=== PATIENT | male | born 1975 | race Caucasian/White ===

== ENCOUNTER 2022-09-13 23:35 | Emergency (ER) | payer OTHER, SELFPAY | END 2022-09-14 02:28 | disposition left against medical advice (07) | PROVIDERS: Emergency Provider Emergency Medicine; PCP Nurse Practitioner Primary Care | DX: S69.92XA Unspecified injury of left wrist, hand and finger(s), initial encounter (principal); X58.XXXA Exposure to other specified factors, initial encounter; Y93.9 Activity, unspecified; Y92.9 Unspecified place or not applicable; Y99.9 Unspecified external cause status ==

== ENCOUNTER → 2024-11-10 09:54 | Outpatient (BNV) | payer OTHER, SELFPAY | PROVIDERS: PCP Nurse Practitioner Primary Care; Visit Provider Radiology Diagnostic Radiology | DX: S51.812A Laceration without foreign body of left forearm, initial encounter (principal) | CPT/HCPCS: 73090 ==

== ENCOUNTER 2024-11-10 10:31 | Emergency (ER) | payer BC, SELFPAY ==
--- NOTE | ~2024-11-10 | XR_ITS ---
EXAMINATION: XR FOREARM, LEFT CLINICAL INFORMATION: LARGE LAC WITH HEAVY ITEM COMPARISON: None available. TECHNIQUE: AP and lateral views of the left forearm were obtained. FINDINGS: No fracture, dislocation, or suspicious bone lesion. Imaged joints appear unremarkable. No elbow joint effusion. Soft tissues demonstrate no radiopaque foreign body or ectopic gas. There is volar forearm laceration proximally. XR/XR forearm LT 2V IMPRESSION: Volar forearm laceration without underlying bony abnormality. No radiopaque foreign body seen. Electronically signed by: Gio Santo MD 11/10/2024 10:59 AM EDT
[2024-11-10 10:35] VITALS: BP 159/77; PULSE 87; RESP 16; TEMP 36.6; O2SAT 95; BMI 27.0
--- NOTE | 2024-11-10 14:11 | ED.WOUNDLAC ---
HPI - Wound/Laceration General Chief Complaint: Wound/Laceration Stated Complaint: hand laceration Time Seen by Provider: 11/10/24 14:06 Source: patient, RN notes reviewed and old records reviewed Mode of arrival: ambulatory Limitations: no limitations History of Present Illness ED Provider: Allie HPI narrative: Patient is a 49-year-old right hand dominant male presenting with laceration to left forearm sustained prior to arrival. Was attempting to throw a used toilet out in a dumpster, but it fell back out and cut his arm on the way to the ground. Unsure last tdap. Denies any numbness/tingling. Denies any decreased ROM to wrist or hand. Applied dressing prior to arrival. Denies any SI or attempt at self harm. Related Data Previous Rx's ?Medication ?Instructions ?Recorded levofloxacin 500 mg tablet 500 mg PO DAILY #7 tabs 11/10/24 Allergies Allergy/AdvReac Type Severity Reaction Status Date / Time erythromycin base Allergy Severe Swelling Verified 11/10/24 10:37 Penicillins Allergy Severe Swelling Verified 11/10/24 10:37 Review of Systems Review of Systems: As per hPI Yes all other systems are reviewed and are negative Constitutional: Constitutional: Reports as per HPI [facility] Social History Social History Advance Directives: No Advance Directives Information Provided: Yes Physical Exam Vital Signs: Vital Signs: Last Vital Signs Temp 98 F 11/10/24 10:35 Pulse 87 11/10/24 10:35 Resp 16 11/10/24 10:35 BP 159/77 H 11/10/24 10:35 Pulse Ox 95 11/10/24 10:35 O2 Del Method Room Air 11/10/24 10:35 BMI result Body Mass Index 27.0 Vital signs have been reviewed and appear to be correct. Blood pressure normal. Heart rate normal. Respiratory rate normal. Temperature normal. Oxygen saturation normal. Const: General: cooperative, healthy appearing and no acute distress Orientation/consciousness: oriented to person, oriented to place, oriented to time and patient oriented x3 Limitations: no limitations HEENT: Head: Yes normocephalic and Yes atraumatic Ears: external ears normal General nose exam: Normal external nose present Face and sinus: Yes face symmetric Mouth: oropharynx normal and moist mucous membranes Throat: Yes uvula midline Eyes: Pupils: Equal, round and reactive pupils present Neck: Neck: Yes normal visual inspection and Yes supple Resp: Effort & Inspection: normal respiratory effort and able to speak in complete sentences Auscultation: clear to auscultation bilaterally Cardio: Rate: regular rate Rhythm: regular rhythm Heart sounds: S1 normal heart sound present and S2 normal heart sound present GI: Palpation (GI): Soft to palpation and nontender Auscultation: normoactive bowel sounds : General: Yes no CVA tenderness Back/Spine/Pelvis: Back: no CVA tenderness Skin: General skin exam: elasticity normal and turgor normal Neuro: General: oriented to person, oriented to place, oriented to time, patient oriented x3, moves all extremities, no focal motor deficits and CN's II-XI intact bilaterally Cranial nerves: Yes Equal, round and reactive pupils present Cognition (Neuro): normal cognition Extrem: General: Yes full ROM, Yes no pedal edema and Yes no calf tenderness Left upper extremity: elbow/forearm Details: distal pulses intact and other (8cm linear laceration anterior forearm), wrist (full ROM) and hand Details: vascular exam Details: radial pulse present and normal capillary refill and normal ROM of fingers Elbow/forearm/wrist images:  1. 8cm linear laceration anterior forearm Psych: Mental Status: mental status grossly normal Affect: normal affect Thought process: Normal thought process present Medications Administered Discontinued Medications Generic Name Dose Route Start Last Admin Trade Name Michealq PRN Reason Stop Dose Admin Bacitracin 1 appl 11/10/24 14:11/10/24 14:15 Bacitracin Oint 0.9 Gm Packet TOPICAL 11/10/24 14:07 1 appl ONCE ONE Administration Protocol Diphtheria/Tetanus/Acell Pertussis 0.5 ml 11/10/24 14:11/10/24 14:15 Diphth,Pertus(Acell),Tet Adult 0.5 Ml Syringe IM 11/10/24 14:07 0.5 ml .ONCE ONE Administration Lidocaine HCl 10 ml 11/10/24 14:11/10/24 14:14 Lidocaine Hcl 1 % Mpf 5 Ml Vial INFILTRATI 11/10/24 14:07 10 ml ONCE ONE Administration Medical Decision Making Medical Decision Making [facility] Narrative: Patient is a 49-year-old right hand dominant male presenting with laceration to left forearm sustained prior to arrival. On exam patient is awake, A+Ox3, VS WNL, afebrile, normal neurological exam without focal deficits, physical exam findings as above. Given reported symptoms and physical exam findings, initial differential includes but is not limited to laceration. No evidence of tendon injury on exam. X-ray ordered by director of hotel operations notable for no evidence of foreign body. My interpretation is in agreement with the radiologist's interpretation. Laceration repaired as per procedure note. Patient tolerated well, no complications. Dressing applied. Wound care instructions and return precautions discussed. Will cover with levofloxacin prophylactically given risk for Pseudomonas as laceration was caused by a toilet. Sutures removed in 7-10 days. Patient verbalized understanding of and agreement with plan. Differential Diagnosis Differential Diagnoses: The differential diagnosis associated with the presentation includes as per [facility] Admission/Observation Consideration of admission/observation: Escalation of care including admission/observation considered Patient would have been admitted to the hospital had their clinical presentation warranted hospital admission. Independent Interpretation I performed an independent interpretation of an: Plain X-Ray Interpretation: No evidence of left forearm FB on xray. Radiology Impression Discussion of test interpretation with radiology: I have reviewed the radiologist's reading. Radiologist Impression: XR/XR forearm LT 2V IMPRESSION: Volar forearm laceration without underlying bony abnormality. No radiopaque foreign body seen. External Record Review External record reviewed: Inpatient record, Office record and Outpatient record Prescription Management I considered prescription management with: Antibiotic Procedures Laceration Laceration 1: Site: upper extremity Side (If applicable): left Size (cm): 8 Description: linear Depth: simple, single layer Local Anesthetic: lidocaine 1% Amount of anesthesia used (mL): 6 Pre-repair: wound explored, irrigated extensively and deep structures intact Skin layer closed with: other (prolene) Size (cm): 5-0 Number of sutures: 13 Technique: simple, interrupted Discharge Plan Discharge Clinical Impression: Laceration of forearm, left, complicated Qualifiers: Encounter type: initial encounter Qualified Code(s): S51.812A - Laceration without foreign body of left forearm, initial encounter Patient Disposition: Home, Self-Care Instructions: Levofloxacin (By mouth), Care For Your Stitches (DC), Laceration (DC), Stitches Removal (ED) Additional Instructions: You have been evaluated in the emergency department today for a laceration to your forearm. Your laceration was repaired in the emergency department with sutures. Please keep the area surrounding the laceration clean and dry and keep dressing in place for the next 24 hours. After that please change the dressing and assess the wound daily. Do not submerge the wound in water until the stitches has been removed and the wound has fully healed (no washing dishes, swimming, hot tubs, etc. and ESPECIALLY no outdoor water). Keep the area out of direct sunlight for the next 6 months to help prevent scarring. You should have the sutures removed in 7-10 days. You are being treated with antibiotics to prevent infection, complete the full course as prescribed. Use caution as this medication can increase your risk for tendon rupture. You should not take prednisone while on this medication. Your Tdap (tetanus) vaccine was updated at today's visit. If you develop fever, redness, swelling at the site of your laceration, or thick yellow drainage please come back to the ER for a wound check. Prescriptions: New levofloxacin 500 mg tablet 500 mg PO DAILY Qty: 7 0RF Print Language: Arabic
[2024-11-10] MEDS: Lidocaine HCl 1 % MPF 5 ML VIAL 10 ML INFILTRATI (14:14)
[2024-11-10] MEDS: Diphth,Pertus(ACell),Tet Adult 0.5 ML SYRINGE IM (14:15)
--- OUTSIDE RECORDS SUMMARY | 2024-11-10 14:57 | XMS_ITS | Clinical Summary ---
Author Organization [facility] Address [address] [place] [address] Care Team Providers Care Cigarette Machines Mechanic Name Role Phone Pcp, No MD Primary Care Provider Unavailabl e Allergies Active Allergy Reactions Criticality Noted Date Comments Penicillins 07/04/2024 Medications albuterol HFA 90 mcg/actuation inhaler Inhale 2 puffs every 6 (six) hours as needed. 06/02/2024 Active gabapentin (NEURONTIN) 300 mg capsule take 1 capsule by mouth three times a day Active lamoTRIgine (LaMICtal) 100 mg tablet TAKE 1 TABLET BY MOUTH EVERY MORNING FOR TOTAL DAILY DOSE 125MG EVERY MORNING Active traZODone (DESYREL) 100 mg tablet TAKE 1/2 TO 1 TABLET BY MOUTH AT BEDTIME NEEDED FOR INSOMNIA Active Family History Relation Status Comments Father Alive Mother Alive Social History Tobacco Use Types Packs/Day Years Used Date Smoking Tobacco: Never Smokeless Tobacco: Never Tobacco Cessation:Counseling Given: Not Answered Alcohol Use Standard Drinks/Week Comments Yes 0 (1 standard drink = 0.6 oz pur e alcohol) Sex and Gender Information Value Date Recorded Sex Assigned at Not on file Legal Sex Male 4:43 AM EST Gender Identity Not on file Sexual Orientation Not on file Last Filed Vital Signs Vital Sign Reading Time Taken Comments Blood Pressure 136/85 07/04/2024 11:26 AM EDT Pulse 56 07/04/2024 11:26 AM EDT Temperature - - Respiratory Rate - - Oxygen Saturation - - Inhaled Oxygen Concentration - - Weight 88.5 kg (195 lb) 07/04/2024 11:26 AM EDT Height 175.3 cm (5' 9 ) 07/04/2024 11:26 AM EDT Body Mass Index 28.8 07/04/2024 11:26 AM EDT Plan of Treatment Health Maintenance Due Date Last Done Comments CT Colonography 1977 Colonoscopy 1977 Colorectal Cancer Screening 1977 FIT-DNA (Cologuard) 1977 FIT 1977 FOBT 1977 Flex Sigmoidoscopy - 5y 1977 HIV Screening 1977 DTaP,Tdap,and Td Vaccines (1 - Tdap) 1995 Hepatitis C Screening 1995 Hepatitis B Vaccines (1 of 3 - 19+ 3-dose series) 02/01/1996 COVID-19 Vaccine (1 - 2023-2 5 season) 2023 Influenza Vaccine (#1) 2024 Zoster Vaccines (1 of 2) 2027 HPV Vaccines Aged Out No longer eligi ble based on patient's age to complete this topic Hepatitis A Vaccines Aged Out No long er eligible based on patient's age to complete this topic MMR Vaccines Aged Out No longer eligi ble based on patient's age to complete this topic Meningococcal Vaccine Aged Out No ana m pennie eligible based on patient's age to complete this topic Pneumococcal Vaccine: Pediat rics (0 to 5 Years) and At-Risk Patients (6 to 49 Years) Aged Out No longer eligible b ased on patient's age to complete this topic Insurance [facility] OPEN ACCESS Care Teams Cigarette Machines Mechanic Relationship Specialty Start Date End Date PcpShama MD [address] [place] [address] PCP - General Internal Medicine 07/04/24
--- OUTSIDE RECORDS SUMMARY | 2024-11-10 14:57 | XMS_ITS ---
Author Name [facility] Organization Unknown History of Medication Use Medication Directions Dispensed Refills Start Date End Date Stat us albuterol HFA 90 mcg/actuation inhaler Inhale 2 puffs every 6 (six) hours as needed. 06/02/2024 active traZODone (DESYREL) 100 MG tablet Take 50-100 mg by mouth nightly as needed. Sleep. 07/29/2023 active gabapentin (NEURONTIN) 300 mg capsule take 1 capsule by mouth three times a day active lamoTRIgine (LaMICtal) 100 mg tablet TAKE 1 TABLET BY MOUTH EVERY MORNING FOR TOTAL DAILY DOSE 125MG EVERY MORNING active traZODone (DESYREL) 100 mg tablet TAKE 1/2 TO 1 TABLET BY MOUTH AT BEDTIME NEEDED FOR INSOMNIA active Allergies Allergen Reaction Severity Comment Documented Date Source Statu s PENICILLINS ANAPHYLAXIS 09/14/2023 CCT activ e ERYTHROMYCIN ANAPHYLAXIS CCT Problems Problem Status Onset Date Problem Type Date of Resoluti on Source Asthenospermia active EncounterDiagnosisAct [facility]UCHS Encounters Encounter Type Encounter Reason Primary Diagnosis Location Date Ambulatory Other abnormal findings in specimens fro Other abnormal findings in specimens from male genital organs [facility] 07/04/2024 Ambulatory [facility] 09/14/2023 Ambulatory Toe Injury Toe Injury [place] [employer] [facility] 09/14/2023 Care Team Organization Name Specialty Phone Email Start Date End Da te [facility] NO PCP Primary Care 07/06/2024 [facility] 09/14/2023 06/22/2024 [facility] 09/14/2023
--- OUTSIDE RECORDS SUMMARY | 2024-11-10 14:57 | XMS_ITS | Clinical Summary ---
Author Organization [facility] Address [address] [place] [address] Care Team Providers Care Rerecording Mixer Name Role Phone Unknown Primary Care Provider [phone] Allergies Active Allergy Reactions Criticality Noted Date Comments Erythromycin Anaphylaxis High 09/14/2023 Penicillins Anaphylaxis High 09/14/2023 Medications traZODone (DESYREL) 100 MG tablet Take 50-100 mg by mouth nightly as needed. Sleep. 07/29/2023 Active gabapentin (NEURONTIN) 300 MG capsule Take 300 mg by mouth 3 (three) times a day. 07/29/2023 Active lamoTRIgine (LaMICtal) 100 MG tablet TAKE 1 TABLET BY MOUTH EVERY MORNING. TOTAL DOSE = 125MG AM 07/29/2023 Active Social History Tobacco Use Types Packs/Day Years Used Date Smoking Tobacco: Never Assessed Sex and Gender Information Value Date Recorded Sex Assigned at Not on file Legal Sex Male 8:30 AM EDT Gender Identity Not on file Sexual Orientation Not on file Last Filed Vital Signs Vital Sign Reading Time Taken Comments Blood Pressure 151/90 09/14/2023 8:40 AM EDT Pulse 81 09/14/2023 8:40 AM EDT Temperature 36.9 C (98.4 F) 09/14/2023 8:40 AM EDT Respiratory Rate 14 09/14/2023 8:40 AM EDT Oxygen Saturation 94% 09/14/2023 8:40 AM EDT Inhaled Oxygen Concentration - - Weight - - Height - - Body Mass Index - - Plan of Treatment Health Maintenance Due Date Last Done Comments Hepatitis C Virus Screening 1977 HIV Screening 1990 DTaP/Tdap/Td Vaccines (1 - Tdap) 02/01/1996 Hepatitis B Vaccines (1 of 3 - 19+ 3-dose series) 02/01/1996 Colonoscopy 2022 COVID-19 Vaccine (1 - 2023-2 5 season) 2023 Influenza Vaccine 11/04/2024 Pneumococcal Vaccine: Pediat elaine (0-5 Years) and At-Risk Patients (6 to 49 Years) Aged Out No longer eligible b ased on patient's age to complete this topic Insurance [facility] Care Teams Rerecording Mixer Relationship Specialty Start Date End Date Unknown Unknow Provider Address PCP - General 09/14/23
--- OUTSIDE RECORDS SUMMARY | 2024-11-10 14:57 | XMS_ITS | Clinical Summary ---
Author Organization [facility] [address] [facility] Address [address] [place] [address] Phone Care Team Providers Care Foam Rubber Molder Name Role Phone Diana Patel NP Primary Care Provider [phone] Allergies Active Allergy Reactions Criticality Noted Date Comments Metaproterenol 08/17/2024 Erythromycin 08/17/2024 Penicillins 08/17/2024 Medications albuterol HFA (PROAIR HFA ; PROVENTIL HFA ; VENTOLIN HFA) 90 mcg/actuation inhaler Inhale 2 puffs by mouth every 6 (six) hours if needed for wheezing. Active gabapentin (NEURONTIN) 300 mg capsule Take 1 capsule (300 mg total) by mouth 3 (three) times a day. Active traZODone (DESYREL) 100 mg tablet Take 1 tablet (100 mg total) by mouth at bedtime. Active fluticasone-sergo meterol (ADVAIR DISKUS) 250-50 mcg/dose diskus inhaler Inhale 1 puff by mouth 2 (two) times a day. Rinse mouth with water after use to reduce aftertaste and incidence of candidiasis. Do not swallow. Active Encounters Date Type Department Care Team Description 08/17/2024 Telephone Gastroenterology - [address] [place] [id number] Benito Guan MD from Last 3 Months Social History Tobacco Use Types Packs/Day Years Used Date Smoking Tobacco: Never Assessed Sex and Gender Information Value Date Recorded Sex Assigned at Not on file Legal Sex Male 10:44 PM EST Gender Identity Not on file Sexual Orientation Not on file Plan of Treatment Upcoming Encounters Date Type Department Care Team ([facility] Contact Info) Description 01/03/2025 8:15 AM EDT Appointment [facility] Endoscopy [address] [place] [address] Lloyd Corcoran MD [address] [facility] [address] [place] [address] Health Maintenance Due Date Last Done Comments DTaP,Tdap,and Td Vaccines (1 - Tdap) 02/01/1996 Hepatitis B Vaccines (1 of 3 - 19+ 3-dose series) 02/01/1996 COVID-19 Vaccine (1 - 2023-2 5 season) 2023 Depression Screening 04/06/2024 Cholesterol Screening (Lipid Panel) 08/17/2024 Colorectal Cancer Screening: Colonoscopy 08/17/2024 HIV Screening 08/17/2024 Hepatitis C Screening 08/17/2024 Social Influencers of Health Screening 08/17/2024 Influenza Vaccine (#1) 2024 HIB Vaccines Aged Out No longer eligi ble based on patient's age to complete this topic HPV Vaccines Aged Out No longer eligi ble based on patient's age to complete this topic Hepatitis A Vaccines Aged Out No long er eligible based on patient's age to complete this topic IPV Vaccines Aged Out No longer eligi ble based on patient's age to complete this topic MMR Vaccines Aged Out No longer eligi ble based on patient's age to complete this topic Meningococcal ACWY Vaccine Aged Out N o longer eligible based on patient's age to complete this topic Meningococcal B Vaccine Aged Out No l onger eligible based on patient's age to complete this topic Pneumococcal Vaccine: Pediat rics (0 to 5 Years) and At-Risk Patients (6 to 49 Years) Aged Out No longer eligible b ased on patient's age to complete this topic RSV Immunization Patients Un luisana 20 months Aged Out No longer eligible b ased on patient's age to complete this topic Varicella Vaccines Aged Out No longer eligible based on patient's [place] [id number] [facility] Care Teams Foam Rubber Molder Relationship Specialty Start Date End Date Diana Patel NP [address] [place] [address] PCP - General Nurse Practitioner 08/17/24
[2024-11-10 15:13] VITALS: BP 159/77; PULSE 87; RESP 16; TEMP 36.6; O2SAT 95
== END 2024-11-10 15:13 | disposition home or self-care (01) ==
PROVIDERS: Emergency Provider Emergency Medicine; PCP Nurse Practitioner Primary Care
DX: S51.812A Laceration without foreign body of left forearm, initial encounter (principal); W22.8XXA Striking against or struck by other objects, initial encounter; Y93.89 Activity, other specified; Y92.89 Other specified places as the place of occurrence of the external cause; Y99.8 Other external cause status; Z23 Encounter for immunization
CPT/HCPCS: 12004; 73090; 90471; 90715; 99282; 99284; J2003